=== PATIENT | female | born 1955 | race Caucasian/White ===

== ENCOUNTER 2016-10-03 11:43 | Emergency (ER) | payer OTHER ==
[2016-10-03] MEDS ORDERED: DUONEB (A & A) INH ONE ×3 (12:50→13:36)
--- NOTE | 2016-10-03 14:23 | PROVIDER DOCUMENTATION ---
HPI-Respiratory General - General Chief Complaint: Cough Stated Complaint: SOB Time Seen by Provider: 10/03/16 12:14 Source: patient Allergies/Adverse Reactions: Patient Allergies Allergy/AdvReac Type Severity Reaction Status Date / Time alendronate sodium Allergy Intermediate "GIVES ME Verified 10/03/16 16:01 [From Fosamax] CHEST PAIN" Sulfa (Sulfonamide Allergy Intermediate "EXTREMELY Verified 10/03/16 16:01 Antibiotics) AGITATED" [Sulfa(Sulfonamide Antibiotics)] amoxicillin trihydrate * Allergy Mild RASH Verified 10/03/16 16:01 [From Augmentin] bacitracin [From Polysporin] Allergy Mild RASH Verified 10/03/16 16:01 hydrocodone bitartrate * Allergy Mild RASH Verified 10/03/16 16:01 [From Lortab] meperidine HCl * Allergy Mild RASH Verified 10/03/16 16:01 [From Demerol] moxifloxacin HCl * Allergy Mild RASH Verified 10/03/16 16:01 [From Avelox] nabumetone [From Relafen] Allergy Mild RASH Verified 10/03/16 16:01 niacin Allergy Mild FLUSHED Verified 10/03/16 16:01 AND HOT polymyxin B sulfate * Allergy Mild MAKES Verified 10/03/16 16:01 [From Polysporin] WOUND WORSE, EXTREMELY RED potassium clavulanate * Allergy Mild RASH Verified 10/03/16 16:01 [From Augmentin] Latex, Natural Rubber Allergy RASH Verified 10/03/16 16:01 Home Medications: Home Medication List Medication Instructions Recorded Confirmed Last Taken Type Albuterol [Albuterol Neb] 0.005 drp IH BID 05/04/12 03/04/16 03/03/16 09:00 History Budesonide 0.5 mg IH BID 05/04/12 03/04/16 03/03/16 09:00 History Gabapentin [Gralise] 600 mg PO BID 05/04/12 03/04/16 03/03/16 09:00 History Levothyroxine [Synthroid] 75 microgm PO QAM 05/04/12 03/04/16 03/03/16 09:00 History Mirtazapine 30 mg PO QHS 05/04/12 03/04/16 03/02/16 20:30 History Montelukast Sodium [Singulair] 10 mg PO QHS 05/04/12 03/04/16 03/02/16 20:30 History Sertraline [Zoloft] 50 mg PO QAM 05/04/12 03/04/16 03/03/16 09:00 History Cyclobenzaprine [Flexeril] 10 mg PO BID PRN 10/25/12 03/04/16 02/12/16 History Omeprazole [Prilosec] 80 mg PO QAM 01/31/16 03/04/16 03/03/16 09:00 History Calcium Carbonate/Vitamin D3 1 each PO BID 02/03/16 03/04/16 03/03/16 09:00 History [Calcium 600-Vit D3 800 Tablet] Lidocaine [Lidoderm] 1 each TP Q12H PRN 03/04/16 03/04/16 Unknown History Ondansetron HCl [Zofran] 4 mg PO Q4H PRN 03/04/16 03/04/16 03/03/16 20:30 History Oxycodone HCl/Acetaminophen 1 each PO DAILY PRN 03/04/16 03/04/16 03/02/16 20: 30 History [Oxycodone-Acetaminophen 5-325] Pravastatin Sodium 20 mg PO QPM 03/04/16 03/04/16 03/02/16 20:30 History Zoledronic Acid/Mannitol&Water 5 mg IV DIRECTED 03/04/16 03/04/16 Unknown History [Reclast 5 mg/100 ml Solution] Lactobacillus Rhamnosus GG 1 each PO DAILY #21 capsule 03/07/16 Unknown Rx [Culturelle] Metoclopramide HCl [Reglan] 5 mg PO TID PRN PRN #20 tablet 03/07/16 Unknown Rx Naproxen 500 mg PO BID #20 tablet 04/09/16 Unknown Rx Cephalexin [Keflex] 500 mg PO BID #20 capsule 06/04/16 Unknown Rx Prednisone 10 mg PO DIRECTED #20 tab.ds.pk 10/03/16 Unknown Rx - History of Present Illness-Resp Nature of Presenting Problem: patient is a 61 y/o F that presents to the ER with 4 days of cough congestion, shortness of breath, and fever. denies chest pain or n/v/d. She has had episodes of sweats and chills. history of copd and asthma Severity in ED: reports: mild, moderate Onset/Duration: reports: gradual, 4 days ago Timing: reports: still present, constant Context: reports: multiple patients with similar complaints Cough Quality/Degree: reports: moderate, productive cough Current Respiratory Medication Therapy: Initiated see nurses note Modifying Factors: worse with: coughing Associated Symptoms: reports: cough, fever/chills, shortness of breath, short of breath. denies: hurts to breathe, nasal congestion, nasal drainage, wheezing Similar Symptoms Previously?: No Recently seen or treated by another doctor?: No Review of Systems - Adult - REVIEW OF SYSTEMS - ADULT Constitutional: reports: chills, fever Eyes: reports: no symptoms reported Ears, Nose, Mouth & Throat: denies: ear discharge, ear pain, sinus problem, throat pain, throat swelling Cardiovascular: denies: chest pain, orthopnea, syncope Respiratory: reports: cough. denies: shortness of breath, wheezing Gastrointestinal: denies: abdominal pain, diarrhea, nausea, rectal bleeding, vomiting Genitourinary: reports: no symptoms reported Musculoskeletal: reports: no symptoms reported Integumentary: reports: no symptoms reported Neurological: reports: no symptoms reported Psychiatric: reports: no symptoms reported Endocrine: reports: no symptoms reported Hematologic/Lymphatic: reports: no symptoms reported Allergic/Immunologic: reports: no symptoms reported All Other Systems: Reviewed and Negative Past History - Adult - PAST MEDICAL HISTORY-ADULT Review of Records: reports: Old Records Reviewed, Nursing Assessment Review, Medications Reviewed Cardiovascular: reports: HTN, hyperlipidemia, other (arterial sclerosis) Respiratory: reports: asthma, COPD, other (emphysema) Psychiatric: reports: depression Endocrine/Immune: reports: thyroid disorder - PRIOR SURGERIES/PROCEDURES Surgical/Procedure History: reports: cholecystectomy, hysterectomy, tonsillectomy, joint replacement, other (sinus) - IMMUNIZATION STATUS Childhood Immunizations: See Nurse Assessment Flu Vaccine: See Nurse Assessment - FAMILY HISTORY Family History: reviewed, not pertinent - SOCIAL HISTORY Smoking: secondhand Living Situation: family Physical Exam-General - PHYSICAL EXAM-ADULT Initial Vital Signs Reviewed: Yes - CONSTITUTIONAL General Appearance: alert, mild distress - EYES Eyes: PERRL/EOMI, pink conjunctivae - HEAD, EARS, NOSE, MOUTH & THROAT HENMT: normocephalic/atraumatic, moist mucous membranes, normal ENT inspection - NECK Neck: full range of motion, normal inspection. negative: lymphadenopathy - RESPIRATORY Respiratory: crackles, wheezing. negative: respiratory distress, decreased breath sounds - CARDIOVASCULAR Cardiovascular: no edema, no gallop, no murmur - GASTROINTESTINAL (ABDOMEN) Abdominal Exam: normal bowel sounds, non tender, soft, no organomegaly, no pulsatile mass - MUSCULOSKELETAL Back Exam: no CVA tenderness, no vertebral tenderness Extremity: normal range of motion, non-tender, normal inspection, no pedal edema , no calf tenderness, normal capillary refill - SKIN Integumentary: normal color, warm/dry - NEUROLOGIC Neurologic: grossly normal, no motor/sensory deficits - PSYCHIATRIC Psych/Mental Status: normal mood/affect, normal thought content, normal thought process, oriented x 3 Progress - PLAN OF CARE/RESULTS Progress/Plan/Lab Results: Vital Signs Temp Pulse Resp BP Pulse Ox 10/03/16 15:34 83 24 135/78 96 10/03/16 14:12 71 22 10/03/16 13:05 62 15 97 10/03/16 11:49 98.3 F 76 22 119/64 99 alendronate sodium [From Fosamax] Allergy (Intermediate, Verified 10/03/16 16:01 ) "GIVES ME CHEST PAIN" Sulfa (Sulfonamide Antibiotics) [Sulfa(Sulfonamide Antibiotics)] Allergy ( Intermediate, Verified 10/03/16 16:01) "EXTREMELY AGITATED" amoxicillin trihydrate * [From Augmentin] Allergy (Mild, Verified 10/03/16 16:01 ) RASH bacitracin [From Polysporin] Allergy (Mild, Verified 10/03/16 16:01) RASH hydrocodone bitartrate * [From Lortab] Allergy (Mild, Verified 10/03/16 16:01) RASH meperidine HCl * [From Demerol] Allergy (Mild, Verified 10/03/16 16:01) RASH moxifloxacin HCl * [From Avelox] Allergy (Mild, Verified 10/03/16 16:01) RASH nabumetone [From Relafen] Allergy (Mild, Verified 10/03/16 16:01) RASH niacin Allergy (Mild, Verified 10/03/16 16:01) FLUSHED AND HOT polymyxin B sulfate * [From Polysporin] Allergy (Mild, Verified 10/03/16 16:01) MAKES WOUND WORSE, EXTREMELY RED potassium clavulanate * [From Augmentin] Allergy (Mild, Verified 10/03/16 16:01) RASH Latex, Natural Rubber Allergy (Verified 10/03/16 16:01) RASH Albuterol [Albuterol Neb] 0.005 drp IH BID 05/04/12 Budesonide 0.5 mg IH BID 05/04/12 Gabapentin [Gralise] 600 mg PO BID 05/04/12 Levothyroxine [Synthroid] 75 microgm PO QAM 05/04/12 Mirtazapine 30 mg PO QHS 05/04/12 Montelukast Sodium [Singulair] 10 mg PO QHS 05/04/12 Sertraline [Zoloft] 50 mg PO QAM 05/04/12 Cyclobenzaprine [Flexeril] 10 mg PO BID PRN 10/25/12 Omeprazole [Prilosec] 80 mg PO QAM 01/31/16 Calcium Carbonate/Vitamin D3 [Calcium 600-Vit D3 800 Tablet] 1 each PO BID 02/02 Lidocaine [Lidoderm] 1 each TP Q12H PRN 03/04/16 Ondansetron HCl [Zofran] 4 mg PO Q4H PRN 03/04/16 Oxycodone HCl/Acetaminophen [Oxycodone-Acetaminophen 5-325] 1 each PO DAILY PRN 03/04/16 Pravastatin Sodium 20 mg PO QPM 03/04/16 Zoledronic Acid/Mannitol&Water [Reclast 5 mg/100 ml Solution] 5 mg IV DIRECTED 03/04/16 Lactobacillus Rhamnosus GG [Culturelle] 1 each PO DAILY #21 capsule 03/07/16 Metoclopramide HCl [Reglan] 5 mg PO TID PRN PRN #20 tablet 03/07/16 Naproxen 500 mg PO BID #20 tablet 04/09/16 Cephalexin [Keflex] 500 mg PO BID #20 capsule 06/04/16 Laboratory 10/03/16 10/03/16 10/03/16 13:57 13:51 13:51 WBC RBC Hgb Hct MCV MCH MCHC RDW Std Deviation Plt Count MPV Immature Gran % (Auto) Neut % (Auto) Lymph % (Auto) Ripley % (Auto) Eos % (Auto) Baso % (Auto) Immature Gran # (Auto) Neut # (Auto) Lymph # (Auto) [place] # (Auto) Eos # (Auto) Baso # (Auto) PT 10.8 INR 1.06 D-Dimer Sodium Potassium Chloride Carbon Dioxide Anion Gap BUN Creatinine Estimated GFR/1.73 m2 BUN/Creatinine Ratio Glucose Calculated Osmolality Calcium Total Bilirubin AST ALT Alkaline Phosphatase Creatine Kinase Troponin T < 0.010 [id number] Pept 64 Total Protein Albumin Globulin Albumin/Globulin Ratio 10/03/16 10/03/16 10/03/16 13:51 13:51 13:51 WBC 7.76 RBC 4.23 Hgb 12.7 Hct 39.4 MCV 93.1 MCH 30.0 MCHC 32.2 L RDW Std Deviation 14.7 H Plt Count 212 MPV 10.0 Immature Gran % (Auto) 0.4 Neut % (Auto) 52.1 Lymph % (Auto) 29.3 R[place]y % (Auto) 14.6 H Eos % (Auto) 3.2 Baso % (Auto) 0.4 Immature Gran # (Auto) 0.03 Neut # (Auto) 4.05 Lymph # (Auto) 2.27 Ripley # (Auto) 1.13 H Eos # (Auto) 0.25 Baso # (Auto) 0.03 PT INR D-Dimer 0.46 Sodium 143 Potassium 3.7 Chloride 105 Carbon Dioxide 26 Anion Gap 12 BUN 9 Creatinine 0.7 Estimated GFR/1.73 m2 > 60 BUN/Creatinine Ratio 13 Glucose 92 Calculated Osmolality 283 Calcium 8.8 Total Bilirubin 0.39 AST 72 H ALT 46 H Alkaline Phosphatase 103 Creatine Kinase 111 Troponin T [id number]-[id number] Pept Total Protein 7.6 Albumin 4.0 Globulin 3.6 Albumin/Globulin Ratio 1.1 Orders Category Date Time Status Cardiac Monitoring DIRECTED Care 10/03/16 14:32 Active Oxygen Therapy- ED Nursing DIRECTED Care 10/03/16 12:50 Active Oxygen Therapy- ED Nursing DIRECTED Care 10/03/16 13:36 Active Saline Loc DIRECTED Care 10/03/16 12:50 Active Saline Loc DIRECTED Care 10/03/16 13:36 Active Saline Loc NOW Care 10/03/16 14:32 Active CHEST-PORTABLE [RAD] Stat Exams 10/03/16 13:38 Draft BNP [PRO B-NATRIURETIC PEPTIDE] Stat Lab 10/03/16 13:57 Completed CBC WITH ELECTRONIC DIFF [HEME] Stat Lab 10/03/16 13:51 Completed CK PROFILE [SP CHEM] Stat Lab 10/03/16 13:51 Completed COMPREHENSIVE METABOLIC PANEL [CHEM] Stat Lab 10/03/16 13:51 Completed D-DIMER [CHEM] Stat Lab 10/03/16 13:51 Completed PROTIME WITH INR [COAG] Stat Lab 10/03/16 13:51 Completed TROPONIN T Stat Lab 10/03/16 13:51 Completed Albuterol 2.5MG/Ipratrop 0.5MG [Duoneb (A & A)] Med 10/03/16 12:50 Discontinued 3 ml INH NOW ONE Albuterol 2.5MG/Ipratrop 0.5MG [Duoneb (A & A)] Med 10/03/16 13:36 Discontinued 3 ml INH NOW ONE Albuterol 2.5MG/Ipratrop 0.5MG [Duoneb (A & A)] Med 10/03/16 13:36 Discontinued 3 ml INH NOW ONE Aerosol Treatments Routine Oth 10/03/16 12:51 Completed Aerosol Treatments Routine Oth 10/03/16 13:37 Completed Aerosol Treatments Stat Ot 10/03/16 12:50 Completed Aerosol Treatments Stat Ot 10/03/16 12:51 Completed Aerosol Treatments Stat Ot 10/03/16 13:36 Completed Aerosol Treatments Stat Ot 10/03/16 13:37 Completed Pulse Oximetry Stat Ot 10/03/16 12:50 Completed Pulse Oximetry Stat Ot 10/03/16 13:36 Completed pt will be d/c home f/u with pcp, rx given, pt was clinically stable. - REASSESSMENT Reassessment #1 Time Reassessed: 16:29 Status: improving Reassessment Comment: breathing and feeling better - XRAY 1 XRAY Study: Chest Impression: Normal XRAY Interpretation: nad Departure - Departure Time of Disposition Order: 16:32 DIAGNOSIS: Wheezing Sinusitis Qualifiers: Sinusitis location: other Chronicity: acute Recurrence: non-recurrent Qualified Code(s): J01.80 - Other acute sinusitis Disposition: HOME 01 Certified Medical Emergency: Emergent Condition: Stable Additional Instructions: ED Follow Up Instructions: You have been treated by a care provider in the Emergency Department. These instructions are being provided to you so you can have an understanding of how to care for yourself upon discharge. Upon discharge from the Emergency Department, you are responsible for making arrangements for follow-up care by a physician of your choice. Take all prescribed medications as directed. Return to the Emergency Department immediately for any new or worsening symptoms. You may call the Physician Referral phone number at [phone] to obtain a list of Physicians who are taking new patients. Prescriptions: Prednisone 10 mg PO DIRECTED #20 tab.[id number] Referrals: Ezequiel Cortes MD [Primary Care Provider] - Forms: Return to School/Parent Work Instructions: Sinusitis, [id number] Attestation - Scribe Verification/Attestation Scribe:: Isai Omer Acting as Scribe for:: Osvaldo Beal Scribe documention review:: This chart was documented by a scribe and accurately reflects the service the provider performed and the decisions made by the provider. Physician Attestation - Physician Attestation I, the provider, attest to the following statement:: Osvaldo Beal Physician documentation Attestation:: This documentation recorded by the scribe accurately reflects the service I personally performed and the decisions made by me.
--- NOTE | 2016-10-03 14:32 | Diag Imaging Result Document ---
PROCEDURE NAME: CHEST-PORTABLE - 10/03/2016 SINGLE FRONTAL RADIOGRAPH OF THE CHEST: COMPARISON: 02/09/2016. FINDINGS: Inspiration is suboptimal. Otherwise, the lungs appear to be grossly clear. There is no definite pleural fluid collection. Cardiac silhouette and central vasculature appear to be stable and probably within normal limits for AP technique. IMPRESSION: No definite acute pathology by plain radiograph.
[2016-10-03 15:00] LABS: MANUAL DIFF NEEDED? NO
[2016-10-03 15:07] LABS: BASO% 0.4 % (0.0-0.8); EOS# 0.25 X1000 (0.0-0.7); EOS% 3.2 % (0.0-10.0); HEMATOCRIT 39.4 % (37.0-47.0); HEMOGLOBIN 12.7 g/dL (12.0-16.0); IMM GRAN# 0.03 X1000 (0.0-0.04); IMM GRAN% 0.4 % (0.0-0.5); LYMPH# 2.27 X1000 (1.2-3.4); LYMPH% 29.3 % (20.5-51.1); MCHC 32.2 g/dL (33-37); MCV 93.1 FL (81-99); MONO# 1.13 X1000 (0.11-0.59); MONO% 14.6 % (1.7-9.3); NEUT% 52.1 % (42.2-75.2); PLT 212 X1000 (130-400); RBC 4.23 XMIL (4.2-5.4)
[2016-10-03 15:18] LABS: AGAP 12; ALKALINE PHOSPHATASE 103 U/L (32-104); BUN 9 mg/dL (8-22); CALCIUM 8.8 mg/dL (8.8-10.2); CHLORIDE 105 mmol/L (98-107); CK PROFILE 111 U/L (24-173); COSMO 283; GOT 72 U/L (10-30); GPT 46 U/L (10-36); POTASSIUM 3.7 mmol/L (3.5-5.1); SODIUM 143 mmol/L (136-145); TCO2 26 mmol/L (25-35); TOTAL BILIRUBIN 0.39 mg/dL (0.20-1.00); TOTAL PROTEIN 7.6 g/dL (6.3-8.3)
[2016-10-03 15:38] LABS: PROTIME 10.8 Seconds (9.2-11.7)
[2016-10-03 15:39] LABS: INR 1.06
[2016-10-03 17:23] VITALS: BP 126/78
== END 2016-10-03 17:23 | disposition home or self-care (01) ==
LOC: EDBD → ED 11:43
DX: J01.80 Other acute sinusitis (principal); R06.2 Wheezing; R05 Cough; R06.02 Shortness of breath; R09.81 Nasal congestion; R50.9 Fever, unspecified; R61 Generalized hyperhidrosis; R68.83 Chills (without fever); Z79.899 Other long term (current) drug therapy; I10 Essential (primary) hypertension; E78.5 Hyperlipidemia, unspecified; J45.909 Unspecified asthma, uncomplicated; J43.9 Emphysema, unspecified; E07.9 Disorder of thyroid, unspecified; F32.9 Major depressive disorder, single episode, unspecified; Z96.60 Presence of unspecified orthopedic joint implant
CPT/HCPCS: 71010; 80053; 82550; 83880; 84484; 85025; 85379; 85610; 94640